=== PATIENT | female | born 2000 | race Caucasian/White ===

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

== ENCOUNTER 2020-10-20 23:45 | Emergency (ER) | payer OTHER ==
[~2020-10-20] VITALS: Ht 152.4 cm; Wt 78.2 kg
[2020-10-21] MEDS ORDERED: SERT100T12 PO (00:01)
[2020-10-21] MEDS ORDERED: SPIR50 PO (00:01)
[2020-10-21] MEDS ORDERED: LEVE750T10 PO (00:01)
[2020-10-21 01:08] LABS: BASOPHILS % (AUTO) 0.6 % (0.0-2.0); EOSINOPHILS % (AUTO) 0.1 % (1.0-6.0); HEMOGLOBIN 12.8 g/dL (12.0-16.0); LYMPHOCYTES # (AUTO) 1.2 K/uL (1.0-4.8); LYMPHOCYTES % (AUTO) 11.4 % (22.0-44.0); MEAN CORPUSCULAR HEMOGLOBIN 28.3 pg (26.0-34.0); MEAN CORPUSCULAR HGB CONC 32.9 G/dL (31.0-37.0); MEAN CORPUSCULAR VOLUME 86 fL (80-100); MONOCYTES # (AUTO) 0.5 K/uL (0.1-1.0); MONOCYTES % (AUTO) 4.9 % (2.0-9.0); NEUTROPHILS # (AUTO) 9.1 K/uL (1.8-7.7); PLATELET COUNT (AUTO) 355 K/uL (150-450); RED BLOOD CELL COUNT(AUTO) 4.54 MIL/uL (4.00-5.20); RED CELL DISTRIBUTION WIDTH 14.1 % (11.5-14.5)
[2020-10-21 01:15] LABS: ANION GAP 12 mmol/L (8-16); CALCIUM, TOTAL 9.8 mg/dL (8.8-10.5); CARBON DIOXIDE 26 mmol/L (22-29); CHLORIDE 101 mmol/L (98-107); CREATININE 0.82 mg/dL (0.60-1.30); GLOMERULAR FILTR. RATE CALC > 60 mL/min (>60); GLUCOSE,RANDOM 93 mg/dL (70-110); SODIUM SERUM 139 mmol/L (136-145); UREA NITROGEN, BLOOD 11 mg/dL (7-18)
[2020-10-21] MEDS ORDERED: ACETAMINOPHEN 325 MG TABLET PO ONE (01:15)
[2020-10-21] MEDS ORDERED: LevETIRAcetam 250 MG TABLET PO ONE ×2 (01:15)
[2020-10-21 01:26] LABS: ALANINE AMINOTRANSFERASE 19 U/L (12-78); ALBUMIN 4.6 g/dL (3.4-5.0); ALKALINE PHOSPHATASE 76 U/L (46-116); ASPARTATE AMINOTRANSFERASE 17 U/L (15-37); BILIRUBIN,TOTAL 0.4 mg/dL (0.1-1.0); HCG,QUANTITATIVE < 1 mIU/mL (0-6); TOTAL PROTEIN, SERUM 9.1 g/dL (6.4-8.2)
[2020-10-21 03:48] VITALS: BP 119/73
== END 2020-10-21 04:32 | disposition home or self-care (01) ==
LOC: EMS 23:54
DX: S00.83XA Contusion of other part of head, initial encounter (principal); G40.909 Epilepsy, unspecified, not intractable, without status epilepticus; M54.2 Cervicalgia; W22.8XXA Striking against or struck by other objects, initial encounter; Y93.89 Activity, other specified; Y92.89 Other specified places as the place of occurrence of the external cause; Y99.8 Other external cause status
CPT/HCPCS: 70450; 72125; 99285

== ENCOUNTER 2022-05-14 18:04 | Emergency (ER) | payer OTHER ==
[~2022-05-14] VITALS: Ht 154.9 cm; Wt 68.2 kg
[~2022-05-14 18:04] MED LIST changes: +LEVE750T10 PO; +SERT-440 PO; +SPIR50TA27 PO
[2022-05-14 18:26] VITALS: BP 133/67
== END 2022-05-14 20:00 | disposition left against medical advice (07) ==
LOC: EMS 18:06
DX: Z53.21 Procedure and treatment not carried out due to patient leaving prior to being seen by health care provider (principal)

== ENCOUNTER 2023-11-15 18:18 | Emergency (ER) | payer OTHER ==
[~2023-11-15] VITALS: Ht 157.5 cm; Wt 68.2 kg
[~2023-11-15 18:18] MED LIST changes: -SERT-440 PO; -SPIR50TA27 PO
[2023-11-15 18:41] VITALS: TEMP 98.2
[2023-11-15] MEDS ORDERED: LEVE500T8 PO (18:43)
[2023-11-15] MEDS ORDERED: CLON-353 PO (18:43)
[2023-11-15] MEDS ORDERED: SPIR50TA27 PO (18:43)
[2023-11-15 19:38] LABS: BASOPHILS % (AUTO) 0.3 % (0.0-2.0); EOSINOPHILS % (AUTO) 0.4 % (1.0-6.0); HEMATOCRIT 38.6 % (36-46); HEMOGLOBIN 12.9 g/dL (12.0-16.0); LYMPHOCYTES # (AUTO) 1.9 K/uL (1.0-4.8); LYMPHOCYTES % (AUTO) 20.8 % (22.0-44.0); MEAN CORPUSCULAR HEMOGLOBIN 30.1 pg (26.0-34.0); MEAN CORPUSCULAR HGB CONC 33.3 G/dL (31.0-37.0); MEAN CORPUSCULAR VOLUME 90 fL (80-100); MONOCYTES # (AUTO) 0.5 K/uL (0.1-1.0); NEUTROPHILS # (AUTO) 6.7 K/uL (1.8-7.7); NEUTROPHILS % (AUTO) 73.5 % (40.0-70.0); PLATELET COUNT (AUTO) 391 K/uL (150-450); RED BLOOD CELL COUNT(AUTO) 4.28 MIL/uL (4.00-5.20); WHITE BLOOD COUNT (AUTO) 9.1 K/uL (4.5-11.0)
[2023-11-15 19:46] LABS: ANION GAP 9 mmol/L (8-16); CALCIUM, TOTAL 9.6 mg/dL (8.8-10.5); CARBON DIOXIDE 24 mmol/L (22-29); CHLORIDE 103 mmol/L (98-107); CREATININE 0.75 mg/dL (0.60-1.30); GLOMERULAR FILTR. RATE CALC > 60 mL/min (>60); GLUCOSE,RANDOM 99 mg/dL (70-110); POTASSIUM 4.1 mmol/L (3.5-5.1); SODIUM SERUM 136 mmol/L (136-145); UREA NITROGEN, BLOOD 14 mg/dL (7-18)
[2023-11-15 19:52] LABS: ALANINE AMINOTRANSFERASE 21 U/L (12-78); ALBUMIN 4.2 g/dL (3.4-5.0); ALKALINE PHOSPHATASE 60 U/L (46-116); ASPARTATE AMINOTRANSFERASE 16 U/L (15-37); BILIRUBIN,TOTAL 0.3 mg/dL (0.1-1.0); LIPASE 29 U/L (16-77); TOTAL PROTEIN, SERUM 8.1 g/dL (6.4-8.2)
[2023-11-15 21:15] VITALS: BP 129/81; PULSE 63; RESP 16
[2023-11-15] MEDS: ONDANSETRON HCL 4 MG TABLET PO ONE (21:21)
[2023-11-15] MEDS: ACETAMINOPHEN 500 MG TABLET PO ONE (21:21)
[2023-11-15] MEDS: MAG HYDROX/ALUMINUM HYD/SIMETH ES 30 ML SUSPENSION UDCUP PO ONE (21:21)
[2023-11-15] MEDS ORDERED: ACET-66 PO (21:47)
[2023-11-15] MEDS ORDERED: OMEP20 PO (21:47)
[2023-11-15] MEDS ORDERED: MAG30ORA11 PO (21:47)
[2023-11-15] MEDS ORDERED: ONDA-104 PO (21:47)
== END 2023-11-15 21:55 | disposition home or self-care (01) ==
LOC: EMS 18:25
DX: K29.70 Gastritis, unspecified, without bleeding (principal); B96.89 Other specified bacterial agents as the cause of diseases classified elsewhere; R07.89 Other chest pain
CPT/HCPCS: 99284; 80053; 83690; 84703; 85025; 36415; Q0162

== ENCOUNTER 2024-10-30 03:49 | Emergency (ER) | payer OTHER ==
[~2024-10-30] VITALS: Ht 149.9 cm; Wt 68.2 kg
[~2024-10-30 03:49] MED LIST changes: +ACET-66 PO; +CLON-353 PO; +LEVE500T8 PO; -LEVE750T10 PO; +MAG30ORA11 PO; -NOCURR; +OMEP20 PO; +ONDA-104 PO; +SPIR50TA27 PO
[2024-10-30 03:55] VITALS: BP 147/85; PULSE 104; RESP 20; TEMP 97.6; O2SAT 98
== END 2024-10-30 04:12 | disposition home or self-care (01) ==
LOC: EMS 03:59
DX: Z02.89 Encounter for other administrative examinations (principal); Z79.899 Other long term (current) drug therapy
CPT/HCPCS: 99283; Z7502